=== PATIENT | male | born 1975 | race Caucasian/White ===

== ENCOUNTER 2020-07-14 10:17 | Day surgery (SDC) | payer BC ==
--- OUTSIDE RECORDS SUMMARY | 2020-07-14 10:31 | XMS REPORT | Clinical Summary ---
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 07/07/2018 Tinnitus of both ears 07/07/2018 Surgical History Surgery Date Site/Laterality Comments TONSILLECTOMY Medical History Medical History Date Comments Ear infection Hypertension Family History Medical History Relation Name Comments Hypertension Father Hypertension Mother Relation Name Status Comments Father Alive Mother Alive Social History Tobacco Use Types Packs/Day Years Used Date Never Smoker Alcohol Use Drinks/Week oz/Week Comments No Sex Assigned at Date Recorded Not on file Last Filed Vital Signs Not on file Plan of Treatment Health Maintenance Due Date Last Done Comments INFLUENZA VACCINE 03/25/2020 Results Not on fileafter 07/14/2019 Advance Directives For more information, please contact: [phone] Type Date Recorded Patient Medical Records Administrator Explanati on Advance Directives, Living Will and Medical Power of Business Supervisor
--- OUTSIDE RECORDS SUMMARY | 2020-07-14 10:31 | XMS REPORT | Continuity of Care Document ---
:1975 Author Organization [facility] t Address [address] [place] [address] Care Team Providers Name Role Phone Asked, Pcp Primary Care Physician Unavailable Problems Condition Condition Condition Status Onset Resolution Last Treating Co mments Source Name Details Category Date Date Treatment Clinician Date Chronic Chronic Disease Active 2017-08 [place] otitis otitis 09-06 [facility] media media 00:00: st 00 Perforatio Perforatio Disease Active 2017-08 [place] of right n of right 09-06 [place] tympanic tympanic 00:00: st membrane membrane 00 Conductive Conductive Disease Active 2017-08 [place] hearing hearing 09-06 [facility] loss of loss of 00:00: st right ear right ear 00 with with unrestrict unrestrict ed hearing ed hearing of left of left ear ear Tinnitus Tinnitus Disease Active 2017-08 [place] of both of both 09-06 [facility] ears ears 00:00: st 00 Allergies, Adverse Reactions, Alerts This patient has no known allergies or adverse reactions. Family History Family Member Diagnosis Comments Start Date Stop Date Source Natural father Hypertension [facility] Natural mother Hypertension [facility] Social History Social Habit Start Date Stop Date Quantity Comments Source Sex Assigned At [place] [facility] Alcohol intake 2018-07-07 2018-07-07 Current [facility] 00:00:00 00:00:00 non-drinker of alcohol (finding) Smoking Status Start Date Stop Date Source Never smoker [place] [facility] Medications Ordered Filled Start Stop Current Ordering Indication Dosage Frequency Signature Comments Components Source Medication Medication Date Date Medication? Clinician (SIG) Name Name lisinopril Yes TK 1 T PO Ho renae (PRINIVIL,Z 9-11 D [facility] ESTRIL) 10 00:00: st mg tablet 00 pravastatin 2018-0 Yes TK 1/2 T Zach urrutialev (PRAVACHOL) 9-11 PO HS [facility] 20 MG 00:00: st tablet 00 Procedures This patient has no known procedures. Plan of Care Planned Activity Planned Date Details Comments Source Future Scheduled 2020-03-25 INFLUENZA VACCINE [facility] Mock Test 00:00:00 [code = INFLUENZA VACCINE] Results This patient has no known results.
[2020-07-14] MEDS ORDERED: Ringers Lactate 1,000 ML IV ONE (10:47)
[2020-07-14] MEDS ORDERED: LABETALOL 20 MG/4ML SYRINGE IV ONE (11:03)
[2020-07-14] MEDS ORDERED: propofoL 200 MG/20 ML VIAL IV ONE (11:03)
[2020-07-14] MEDS ORDERED: LIDOCAINE 2% MPF 5 ML VIAL ONE (11:04)
[2020-07-14] MEDS ORDERED: ONDANSETRON 4 MG/2 ML VIAL ONE (11:04)
[2020-07-14] MEDS ORDERED: FENTANYL CITR 100 MCG/2 ML ONE (11:04)
[2020-07-14] MEDS ORDERED: ROCURONIUM 50 MG/5 ML VIAL IV ONE (11:04)
[2020-07-14] MEDS ORDERED: MIDAZOLAM HCL 2 MG/2 ML INJ ONE (11:04)
[2020-07-14] MEDS ORDERED: dexAMETHasone 10 MG/ML VIAL ONE (11:04)
[2020-07-14] MEDS ORDERED: GLYCOPYRROLATE 0.2 MG/ML SYR ONE ×2 (11:32→14:13)
[2020-07-14] MEDS ORDERED: KETOROLAC 30 MG/ML INJ ONE (11:32)
[2020-07-14] MEDS ORDERED: NEOSTIGMINE 1 MG/ML -5 ML ONE ×2 (11:33→14:13)
[2020-07-14] MEDS ORDERED: Mastisol Adhesive Liq ONE (11:38)
[2020-07-14] MEDS ORDERED: BACITRACIN OINTMENT 15 GM TUBE TOP ONE (11:59)
[2020-07-14] MEDS ORDERED: EPINEPHRINE/PF 1 MG/ML AMP ONE (12:00)
[2020-07-14] MEDS ORDERED: OFLOXACIN OPH 0.3%-5 ML BTL ONE (12:00)
[2020-07-14] MEDS ORDERED: LIDOCAINE 1% W/EPI 1:100,000 MDV 20 ML VIAL ONE (12:00)
[2020-07-14] MEDS: Ringers Lactate 1,000 ML IV ONE ×2 (14:28→14:46)
[2020-07-14 14:46] VITALS: TEMP 97.5
[2020-07-14 15:29] VITALS: BP 133/88; O2SAT 100
--- NOTE | 2020-07-15 08:55 | OP ---
Date of Procedure: 07/14/2020 Surgeon: Lana Quijano MD Tool Trouble Shooter: None. Preoperative Diagnoses: Right tympanic membrane perforation with bilateral mixed hearing loss. Postoperative Diagnoses: Right tympanic membrane perforation with bilateral mixed hearing loss with chronic mucoid otitis media. Indications For Procedure: Julian Crystal presented to the ENT clinic with complaints of longstanding t ympanic perforation with prior evaluation by an outside ENT about 4 years ago. He now feels ready an d motivated for surgery due to ongoing recurrent drainage. The risks, benefits, and alternatives to the procedure were discussed with the patient including graft failure and recurrence of condition. Anesthesia: General. Estimated Blood Loss: Less than 5 mL. Description Of Procedure: The patient was brought to the operating room. He is placed under general anesthesia via oral endotracheal tube. The head of bed was turned 90 degrees. The head was turned to the left for better exposure of the right ear. A time-out was called confirming the patient's jessee ntity, condition, and laterality of the planned procedure and a surgical marker with the surgeon's in itials were noted on the right earlobe. The skin around the ear was cleaned with alcohol and the ear was examined with the operating microscope and ear speculum, noted in the anterior-inferior quadrant of the ear and occupied approximately 20% of the eardrum. There was thick mucoid drainage within th e middle ear. After suctioning the middle ear mucosa appeared less inflamed than his preoperative vi sit and decision was made to proceed with the procedure. The ear canal was carefully cleaned with Be tadine and a Q-tip to avoid excessive Betadine in the middle ear space. The ear canal and postauricu lar area were injected with 1% lidocaine with epinephrine. A cotton ball was placed at the meatus an d the surrounding skin was prepped with Betadine and draped in sterile fashion. A 2 cm incision was made in the postauricular area through the skin and subcutaneous tissues. A loose areolar tissue gra ft was collected and excised, pressed and set to dry. The area was treated with Bovie electrocautery to control areas of bleeding and was left open in case additional graft material was needed. The mi croscope was then brought back into the field. A pick and suction were used to prepare the perforati on by removing a thin rim of tissue from the edge of the perforation in order freshen the edges. The re was moderate clear thick mucus within the middle ear, which was additionally suctioned. There was no evidence of granulation tissue. There was no clear evidence of cholesteatoma or squamous debris within the middle ear. After adequate sight preparation, the tympanomeatal flap was elevated and inc ision was made along the bony-cartilaginous junction of the ear canal and a duckbill elevator was use d to carefully elevate the soft tissue while approaching the bony annulus. The skin was somewhat inf lamed and friable, likely due to recent or chronic drainage from the ear and the laceration was creat ed just in front of the fibrous annulus. The finding was noted and the fibrous annulus was then elev ated using a pick and a glove pocket elevator. Once the fibrous annulus was elevated and additional amount of thick mucoid drainage was noted within the posterior middle ear space and was carefully suc tioned. The middle ear was then carefully irrigated with sterile saline to further loosen and help r emove areas of mucus. After several aliquots of saline and suctioning, no further mucus was noted. Mucosa was very thick and somewhat eosinophilic, reminiscent of patients with allergic fungal sinusit is, though no fungal debris was identified. The middle ear space was then filled with ofloxacin soak ed ultra foam to provide support to the graft. Once the middle ear was adequately filled, the graft was trimmed to the appropriate size and placed as a medial onlay technique. The graft was carefully positioned to ensure adequate coverage. Additional pieces of ofloxacin soaked ultra foam were placed within the posterior middle ear cavity to provide additional support. Once adequately positioned an d supported, the tympanomeatal flap was replaced into its proper position and the external auditory c anal was filled with ofloxacin soaked ultra foam. The postauricular incision was closed in layered f ashion using 4-0 Vicryl and 5-0 fast-absorbing gut. A cotton ball was placed at the meatus, Xeroform was used to cover the incision and a mastoid dressing was applied using fluffs and a Valentino wrap. Th e procedure was then concluded and the patient was returned to Anesthesia for awakening extubation in the operating room, which proceeded without difficulty. Disposition: The patient will be discharged home later today in the care of his . He can take T ylenol and ibuprofen as needed for pain. The patient also has a home prescription for narcotic medic ation for his other medical conditions and can use this if needed. In consideration of the surgical findings, I discussed with the regarding my concerns for an und erlying allergic or related sinonasal condition. I instructed the patient that his preop visit to us e Flonase twice daily and will need to consider evaluation for his nasal symptoms in regard to how th ey may be affecting the ear and the middle ear and eustachian tube function long-term. VERONIQUE/TREMAYNE Voice ID: [id number] Report ID: [id number]
== END 2020-07-14 15:30 | disposition home or self-care (01) ==
LOC: OR 10:17
PROVIDERS: ATTEND Otolaryngology
PROC: 09B0XZZ Excision of Right External Ear, External Approach (ICD-10-PCS; 2020-07-14)
PROC: 09U707Z Supplement Right Tympanic Membrane with Autologous Tissue Substitute, Open Approach (ICD-10-PCS; principal; 2020-07-14 12:30)
DX: H72.01 Central perforation of tympanic membrane, right ear (principal); H65.31 Chronic mucoid otitis media, right ear; H90.6 Mixed conductive and sensorineural hearing loss, bilateral; Z20.828 Contact with and (suspected) exposure to other viral communicable diseases; F17.290 Nicotine dependence, other tobacco product, uncomplicated; G47.30 Sleep apnea, unspecified; M54.5 Low back pain; G89.29 Other chronic pain; J30.9 Allergic rhinitis, unspecified; R06.83 Snoring
CPT/HCPCS: 93005; 69631; 21235; U0002; J2704; J2250; J3010; J1100; J2710 ×2; J7120 ×2; J2405; J0171